=== PATIENT | female | born 1950 | race Caucasian/White ===

== ENCOUNTER 2017-10-22 18:16 | Inpatient (IN) | payer OTHER ==
[2017-10-22] MEDS: FUROSEMIDE 40 MG INJ IV (19:00)
[2017-10-22 19:32] LABS: ADD MAN DIFF? NO
[2017-10-22] MEDS: ASPIRIN 81 MG TAB PO (19:33)
[2017-10-22 19:34] LABS: WHITE BLOOD COUNT 6.2 10^3/ul (4.8-10.8)
[2017-10-22 19:34] LABS: BASOPHILS % 0.6 % (0.0-2.0); EOSINOPHILS # 0.1 10^3/ul (0.0-0.5); EOSINOPHILS % 2.1 % (0.0-7.0); HEMATOCRIT 48.5 % (37.0-47.0); HEMOGLOBIN 16.2 g/dl (12.0-16.0); LYMPHOCYTES # 0.9 10^3/ul (0.8-2.9); LYMPHOCYTES % 13.7 % (15.0-51.0); MEAN CORPUSCULAR HEMOGLOBIN 29.2 pg (29.0-33.0); MEAN CORPUSCULAR HGB CONC 33.4 g/dl (32.0-37.0); MEAN CORPUSCULAR VOLUME 87.4 fl (82.0-101.0); MEAN PLATELET VOLUME 8.9 fl (7.4-10.4); MONOCYTE # 0.6 10^3/ul (0.3-0.9); MONOCYTES % 8.9 % (0.0-11.0); NEUTROPHIL # 4.6 10^3/ul (1.6-7.5); NEUTROPHILS % 74.2 % (39.0-77.0); PLATELET COUNT 295 10^3/UL (140-415); RED BLOOD COUNT 5.55 10^6/ul (4.20-5.40); RED CELL DISTRIBUTION WIDTH 15.7 % (11.5-14.5)
[2017-10-22 19:47] LABS: AADO2 Arterial 152.4 mmHg (7.0-24.0); Allen Test ACCEPTAB; Arterial Base Excess 3.5 mmol/L (-3.0-3); Arterial Blood Gas Oxygen Sat 92.9 mmHG (95.0-98.0); Arterial COHb 0.9 % (0.0-3.0); Arterial Fraction of Oxyhgb 91.8 % (93.0-99.0); Arterial HCO3 25.9 mmol/L (22.0-26.0); Arterial MetHb 0.3 % (0.0-1.5); Arterial Total Hemglobin 16.4 g/dl (12.0-18.0); Arterial pCO2 33.4 mmhg (35-45); MODE NASAL CANNULA; Site Right Radial
[2017-10-22 19:55] LABS: LACTIC ACID 1.1 mmol/L (0.5-2.0)
[2017-10-22 19:55] LABS: INR 1.44; PARTIAL THROMBOPLASTIN TIME 31.2 Sec (25.0-35.0); PROTIME 17.8 Sec (11.9-14.9); PT RATIO 1.4
[2017-10-22 19:56] LABS: ANION GAP 13 (8-16); BLOOD UREA NITROGEN 20 mg/dl (7-20); CALCIUM 8.3 mg/dl (8.4-10.2); CARBON DIOXIDE 30 mmol/L (21-31); CHLORIDE 101 mmol/L (97-110); CREATININE 0.94 mg/dl (0.44-1.00); GLUCOSE 96 mg/dl (70-220); POTASSIUM 3.3 mmol/L (3.5-5.1); SODIUM 141 mmol/L (135-144)
[2017-10-22 20:08] LABS: TROPONIN-I 0.048 ng/ml (0.00-0.12)
[2017-10-22] MEDS ORDERED: ONDANSETRON 4 MG INJ IV (21:00)
[2017-10-22] MEDS ORDERED: ACETAMINOPHEN 325 MG TAB PO (21:00)
[2017-10-22] MEDS: POTASSIUM CHLORIDE (SR) 20 MEQ TAB PO (21:11)
[2017-10-22] MEDS: SOD CHLORIDE 0.9% 500 ML IV (21:17)
[2017-10-22 22:19] LABS: LACTIC ACID 1.4 mmol/L (0.5-2.0)
[2017-10-22 22:20] LABS: ALANINE AMINOTRANSFERASE 33 IU/L (13-69); ALBUMIN 2.7 g/dl (3.3-4.9); ALBUMIN/GLOBULIN RATIO 0.96; ALKALINE PHOSPHATASE 72 IU/L (42-121); ANION GAP 14 (8-16); ASPARTATE AMINO TRANSFERASE 39 IU/L (15-46); BILIRUBIN,INDIRECT 0.4 mg/dl (0-1.1); BILIRUBIN,TOTAL 0.4 mg/dl (0.2-1.3); BLOOD UREA NITROGEN 20 mg/dl (7-20); CARBON DIOXIDE 25 mmol/L (21-31); CHLORIDE 102 mmol/L (97-110); CREATININE 0.87 mg/dl (0.44-1.00); GLUCOSE 89 mg/dl (70-220); POTASSIUM 3.4 mmol/L (3.5-5.1); SODIUM 138 mmol/L (135-144); TOTAL PROTEIN 5.5 g/dl (6.1-8.1)
[2017-10-22] MEDS: IOHEXOL 100 ML (23:11)
[2017-10-22] MEDS: SOD CHLORIDE 0.9% 100 ML (23:11)
[2017-10-22] MEDS: IOHEXOL 350MG/ML 50 ML BTL (23:12)
[2017-10-23] MEDS ORDERED: ONDANSETRON 4 MG INJ IV
[2017-10-23] MEDS ORDERED: NACL 0.9% 3 ML SYG IV
[2017-10-23] MEDS: SOD CHLORIDE 0.9% 500 ML IV (01:30)
[2017-10-23 02:16] LABS: CREATINE KINASE 39 IU/L (23-200)
[2017-10-23 02:27] LABS: CK INDEX 2.4; CK-MB 0.95 ng/ml (0.0-2.4); TROPONIN-I 0.054 ng/ml (0.00-0.12)
[2017-10-23] MEDS ORDERED: RIOCIGUAT 2.5 MG PO (03:00)
[2017-10-23] MEDS ORDERED: NORepinephrine 8MG/250 ML (PMX 250 ML (03:20)
[2017-10-23 06:09] LABS: ADD MAN DIFF? NO
[2017-10-23 06:14] LABS: BASOPHIL # 0.1 10^3/ul (0.0-0.1); BASOPHILS % 0.7 % (0.0-2.0); EOSINOPHILS # 0.2 10^3/ul (0.0-0.5); EOSINOPHILS % 2.2 % (0.0-7.0); HEMATOCRIT 46.1 % (37.0-47.0); HEMOGLOBIN 15.7 g/dl (12.0-16.0); LYMPHOCYTES # 1.4 10^3/ul (0.8-2.9); LYMPHOCYTES % 18.8 % (15.0-51.0); MEAN CORPUSCULAR HEMOGLOBIN 29.6 pg (29.0-33.0); MEAN CORPUSCULAR HGB CONC 34.1 g/dl (32.0-37.0); MEAN CORPUSCULAR VOLUME 86.8 fl (82.0-101.0); MEAN PLATELET VOLUME 9.4 fl (7.4-10.4); MONOCYTE # 0.8 10^3/ul (0.3-0.9); MONOCYTES % 10.8 % (0.0-11.0); NEUTROPHIL # 4.9 10^3/ul (1.6-7.5); NEUTROPHILS % 66.8 % (39.0-77.0); PLATELET COUNT 286 10^3/UL (140-415); RED BLOOD COUNT 5.31 10^6/ul (4.20-5.40); RED CELL DISTRIBUTION WIDTH 15.9 % (11.5-14.5)
[2017-10-23 06:14] LABS: WHITE BLOOD COUNT 7.4 10^3/ul (4.8-10.8)
[2017-10-23 06:43] LABS: ALANINE AMINOTRANSFERASE 27 IU/L (13-69); ALBUMIN 2.3 g/dl (3.3-4.9); ALBUMIN/GLOBULIN RATIO 0.95; ALKALINE PHOSPHATASE 76 IU/L (42-121); ANION GAP 16 (8-16); ASPARTATE AMINO TRANSFERASE 39 IU/L (15-46); BILIRUBIN,INDIRECT 0.8 mg/dl (0-1.1); BILIRUBIN,TOTAL 0.8 mg/dl (0.2-1.3); BLOOD UREA NITROGEN 18 mg/dl (7-20); CALCIUM 7.4 mg/dl (8.4-10.2); CARBON DIOXIDE 22 mmol/L (21-31); CHLORIDE 108 mmol/L (97-110); CREATININE 0.78 mg/dl (0.44-1.00); GLUCOSE 99 mg/dl (70-220); SODIUM 142 mmol/L (135-144); TOTAL PROTEIN 4.7 g/dl (6.1-8.1)
[2017-10-23] MEDS: PIPER-TAZO 3.375 GM IV (PMX) 100 ML IVPB ×2 (07:00→21:58)
[2017-10-23] MEDS: FUROSEMIDE 40 MG INJ IV (07:00)
[2017-10-23 07:01] LABS: CREATINE KINASE 42 IU/L (23-200)
[2017-10-23 07:05] LABS: CHOL/HDL RATIO 4.1 RATIO; HDL CHOLESTEROL 26 mg/dl (35-98); LDL CHOLESTEROL,CALCULATED 56 mg/dl; TRIGLYCERIDES 132 mg/dl (0-149)
[2017-10-23 07:05] LABS: CHOLESTEROL 108 mg/dl (100-200)
[2017-10-23 07:14] LABS: CK INDEX 2.6; CK-MB 1.08 ng/ml (0.0-2.4); TROPONIN-I 0.053 ng/ml (0.00-0.12)
[2017-10-23 07:17] LABS: LACTIC ACID 2.1 mmol/L (0.5-2.0)
[2017-10-23] MEDS: NORepinephrine 8MG/250 ML (PMX 250 ML IV (07:17)
[2017-10-23] MEDS: LEVOTHYROXINE 25 MCG TAB PO (10:36)
[2017-10-23 11:15] LABS: LACTIC ACID 1.4 mmol/L (0.5-2.0)
[2017-10-23] MEDS: ADEMPAS 2.5 MG PO ×3 (12:28→21:57)
[2017-10-23 13:08] LABS: FREE T4 (FREE THYROXINE) 1.56 ng/dl (0.78-2.44)
[2017-10-23 13:09] LABS: T4 (THYROXINE) 9.4 ug/dl (5.5-11.0)
[2017-10-23] MEDS: DIGOXIN 0.125 MG TAB PO (13:28)
[2017-10-23 14:23] LABS: DIGOXIN 0.8 ng/ml (1.0-2.0)
[2017-10-23] MEDS ORDERED: CEFTRIAXONE 1 GM/50 ML (PMX) 50 ML IVPB (17:00)
[2017-10-23] MEDS: RIVAROXABAN 20 MG TABLET PO (19:08)
[2017-10-23] MEDS: AZITHROMYCIN 250 MG TAB PO (19:12)
[2017-10-24] MEDS: PIPER-TAZO 3.375 GM IV (PMX) 100 ML IVPB ×3 (05:26→21:59)
[2017-10-24 05:39] LABS: ADD MAN DIFF? NO
[2017-10-24 05:47] LABS: BASOPHIL # 0.1 10^3/ul (0.0-0.1); BASOPHILS % 0.6 % (0.0-2.0); EOSINOPHILS # 0.2 10^3/ul (0.0-0.5); EOSINOPHILS % 2.1 % (0.0-7.0); HEMATOCRIT 45.5 % (37.0-47.0); HEMOGLOBIN 15.6 g/dl (12.0-16.0); LYMPHOCYTES # 1.3 10^3/ul (0.8-2.9); LYMPHOCYTES % 14.9 % (15.0-51.0); MEAN CORPUSCULAR HEMOGLOBIN 29.5 pg (29.0-33.0); MEAN CORPUSCULAR HGB CONC 34.3 g/dl (32.0-37.0); MEAN CORPUSCULAR VOLUME 86.2 fl (82.0-101.0); MEAN PLATELET VOLUME 8.8 fl (7.4-10.4); MONOCYTE # 0.7 10^3/ul (0.3-0.9); MONOCYTES % 8.6 % (0.0-11.0); NEUTROPHIL # 6.3 10^3/ul (1.6-7.5); NEUTROPHILS % 73.2 % (39.0-77.0); PLATELET COUNT 283 10^3/UL (140-415); RED BLOOD COUNT 5.28 10^6/ul (4.20-5.40); RED CELL DISTRIBUTION WIDTH 16.5 % (11.5-14.5)
[2017-10-24 05:47] LABS: WHITE BLOOD COUNT 8.6 10^3/ul (4.8-10.8)
[2017-10-24 06:15] LABS: ANION GAP 15 (8-16); BLOOD UREA NITROGEN 15 mg/dl (7-20); CALCIUM 7.8 mg/dl (8.4-10.2); CARBON DIOXIDE 25 mmol/L (21-31); CHLORIDE 108 mmol/L (97-110); CREATININE 0.76 mg/dl (0.44-1.00); GLUCOSE 117 mg/dl (70-220); MAGNESIUM 2.1 mg/dl (1.7-2.5); PHOSPHORUS 3.6 mg/dl (2.5-4.9); SODIUM 145 mmol/L (135-144)
[2017-10-24 06:18] LABS: POTASSIUM 2.8 mmol/L (3.5-5.1)
[2017-10-24] MEDS: LEVOTHYROXINE 25 MCG TAB PO (07:59)
[2017-10-24] MEDS: POTASSIUM CHLORIDE 20 MEQ POWDER FOR ORAL SOLN PO (08:00)
[2017-10-24] MEDS: AZITHROMYCIN 250 MG TAB PO (08:29)
[2017-10-24] MEDS: ADEMPAS 2.5 MG PO ×3 (08:29→21:42)
[2017-10-24] MEDS: PHENTOLAMINE 5 MG INJ SC (12:30)
[2017-10-24] MEDS: LIDOCAINE 1% (MPF) 5 ML VIAL SC (17:05)
[2017-10-24] MEDS: SOD CHLORIDE 0.9% 100 ML (17:20)
[2017-10-24] MEDS: RIVAROXABAN 20 MG TABLET PO (18:14)
[2017-10-24] MEDS ORDERED: POTASSIUM CHLORIDE 50 ML IVPB (19:00)
[2017-10-24] MEDS: SOD CHLORIDE 0.9% 250 ML IV (19:30)
[2017-10-24] MEDS: ACETAMINOPHEN 325 MG TAB PO (21:42)
[2017-10-25] MEDS: PIPER-TAZO 3.375 GM IV (PMX) 100 ML IVPB ×3 (05:01→22:30)
[2017-10-25 05:15] LABS: ADD MAN DIFF? NO
[2017-10-25 05:22] LABS: WHITE BLOOD COUNT 6.2 10^3/ul (4.8-10.8)
[2017-10-25 05:22] LABS: BASOPHILS % 0.6 % (0.0-2.0); EOSINOPHILS # 0.2 10^3/ul (0.0-0.5); EOSINOPHILS % 3.6 % (0.0-7.0); HEMATOCRIT 47.6 % (37.0-47.0); LYMPHOCYTES # 1.2 10^3/ul (0.8-2.9); MEAN CORPUSCULAR HEMOGLOBIN 29.1 pg (29.0-33.0); MEAN CORPUSCULAR HGB CONC 33.6 g/dl (32.0-37.0); MEAN CORPUSCULAR VOLUME 86.7 fl (82.0-101.0); MEAN PLATELET VOLUME 8.9 fl (7.4-10.4); MONOCYTE # 0.6 10^3/ul (0.3-0.9); MONOCYTES % 9.7 % (0.0-11.0); NEUTROPHIL # 4.1 10^3/ul (1.6-7.5); NEUTROPHILS % 65.8 % (39.0-77.0); PLATELET COUNT 267 10^3/UL (140-415); RED BLOOD COUNT 5.49 10^6/ul (4.20-5.40); RED CELL DISTRIBUTION WIDTH 15.9 % (11.5-14.5)
[2017-10-25 05:36] LABS: ANION GAP 12 (8-16); BLOOD UREA NITROGEN 13 mg/dl (7-20); CALCIUM 7.5 mg/dl (8.4-10.2); CARBON DIOXIDE 21 mmol/L (21-31); CHLORIDE 110 mmol/L (97-110); CREATININE 0.72 mg/dl (0.44-1.00); GLUCOSE 111 mg/dl (70-220); MAGNESIUM 2.1 mg/dl (1.7-2.5); PHOSPHORUS 2.8 mg/dl (2.5-4.9); POTASSIUM 3.7 mmol/L (3.5-5.1); SODIUM 139 mmol/L (135-144)
[2017-10-25] MEDS: LEVOTHYROXINE 25 MCG TAB PO (06:50)
[2017-10-25] MEDS: ACETAMINOPHEN 325 MG TAB PO (07:25)
[2017-10-25 08:41] LABS: AADO2 Arterial 322.3 mmHg (7.0-24.0); Allen Test ACCEPTAB; Arterial Blood Gas Oxygen Sat 94.1 mmHG (95.0-98.0); Arterial COHb 0.8 % (0.0-3.0); Arterial Fraction of Oxyhgb 93.1 % (93.0-99.0); Arterial HCO3 21.9 mmol/L (22.0-26.0); Arterial MetHb 0.3 % (0.0-1.5); Arterial Total Hemglobin 16.1 g/dl (12.0-18.0); Arterial pCO2 32.3 mmhg (35-45); MODE HFNC; Site Right Radial
[2017-10-25] MEDS: ADEMPAS 2.5 MG PO ×2 (08:50→13:18)
[2017-10-25] MEDS: POTASSIUM CHLORIDE 20 MEQ POWDER FOR ORAL SOLN PO (08:51)
[2017-10-25] MEDS: RIVAROXABAN 20 MG TABLET PO (17:57)
[2017-10-26] MEDS: ADEMPAS 1.5 MG PO ×4 (00:08→20:17)
[2017-10-26 05:08] LABS: ADD MAN DIFF? NO
[2017-10-26 05:09] LABS: ABNORMAL IP MESSAGE 1; BASOPHIL # 0.1 10^3/ul (0.0-0.1); BASOPHILS % 1.2 % (0.0-2.0); EOSINOPHILS # 0.8 10^3/ul (0.0-0.5); EOSINOPHILS % 11.2 % (0.0-7.0); HEMATOCRIT 43.9 % (37.0-47.0); LYMPHOCYTES # 1.1 10^3/ul (0.8-2.9); LYMPHOCYTES % 16.5 % (15.0-51.0); MEAN CORPUSCULAR HEMOGLOBIN 29.8 pg (29.0-33.0); MEAN CORPUSCULAR HGB CONC 34.2 g/dl (32.0-37.0); MEAN CORPUSCULAR VOLUME 87.1 fl (82.0-101.0); MEAN PLATELET VOLUME 9.1 fl (7.4-10.4); MONOCYTE # 0.5 10^3/ul (0.3-0.9); MONOCYTES % 7.5 % (0.0-11.0); NEUTROPHIL # 4.3 10^3/ul (1.6-7.5); NEUTROPHILS % 63.2 % (39.0-77.0); PLATELET COUNT 263 10^3/UL (140-415); RED BLOOD COUNT 5.04 10^6/ul (4.20-5.40); RED CELL DISTRIBUTION WIDTH 16.2 % (11.5-14.5)
[2017-10-26 05:09] LABS: WHITE BLOOD COUNT 6.8 10^3/ul (4.8-10.8)
[2017-10-26 05:25] LABS: POSITIVE DIFF @See below
[2017-10-26 05:43] LABS: ANION GAP 9 (8-16); BLOOD UREA NITROGEN 11 mg/dl (7-20); CALCIUM 7.5 mg/dl (8.4-10.2); CARBON DIOXIDE 23 mmol/L (21-31); CHLORIDE 107 mmol/L (97-110); CREATININE 0.68 mg/dl (0.44-1.00); GLUCOSE 142 mg/dl (70-220); MAGNESIUM 2.1 mg/dl (1.7-2.5); PHOSPHORUS 3.1 mg/dl (2.5-4.9); POTASSIUM 3.8 mmol/L (3.5-5.1); SODIUM 135 mmol/L (135-144)
[2017-10-26] MEDS: LEVOTHYROXINE 25 MCG TAB PO (06:21)
[2017-10-26] MEDS: PIPER-TAZO 3.375 GM IV (PMX) 100 ML IVPB ×3 (06:23→21:32)
[2017-10-26] MEDS: POTASSIUM CHLORIDE 20 MEQ POWDER FOR ORAL SOLN PO (06:56)
[2017-10-26 09:11] LABS: AADO2 Arterial 314.9 mmHg (7.0-24.0); Allen Test ACCEPTAB; Arterial Base Excess -2.3 mmol/L (-3.0-3); Arterial Blood Gas Oxygen Sat 95.6 mmHG (95.0-98.0); Arterial COHb 0.4 % (0.0-3.0); Arterial Fraction of Oxyhgb 94.9 % (93.0-99.0); Arterial HCO3 20.3 mmol/L (22.0-26.0); Arterial MetHb 0.3 % (0.0-1.5); Arterial Total Hemglobin 16.9 g/dl (12.0-18.0); Arterial pCO2 29.9 mmhg (35-45); MODE HFNC; Site LB
[2017-10-26] MEDS: FUROSEMIDE 40 MG TAB PO ×2 (12:44→17:41)
[2017-10-26] MEDS: RIVAROXABAN 20 MG TABLET PO (17:43)
[2017-10-26] MEDS: ACETAMINOPHEN 325 MG TAB PO (20:17)
[2017-10-27 05:17] LABS: ADD MAN DIFF? NO
[2017-10-27 05:24] LABS: BASOPHIL # 0.1 10^3/ul (0.0-0.1); BASOPHILS % 1.3 % (0.0-2.0); EOSINOPHILS # 0.3 10^3/ul (0.0-0.5); EOSINOPHILS % 5.3 % (0.0-7.0); HEMATOCRIT 42.8 % (37.0-47.0); HEMOGLOBIN 14.5 g/dl (12.0-16.0); LYMPHOCYTES % 17.8 % (15.0-51.0); MEAN CORPUSCULAR HEMOGLOBIN 29.4 pg (29.0-33.0); MEAN CORPUSCULAR HGB CONC 33.9 g/dl (32.0-37.0); MEAN CORPUSCULAR VOLUME 86.8 fl (82.0-101.0); MEAN PLATELET VOLUME 9.1 fl (7.4-10.4); MONOCYTE # 0.5 10^3/ul (0.3-0.9); MONOCYTES % 9.3 % (0.0-11.0); NEUTROPHIL # 3.6 10^3/ul (1.6-7.5); NEUTROPHILS % 65.8 % (39.0-77.0); PLATELET COUNT 243 10^3/UL (140-415); RED BLOOD COUNT 4.93 10^6/ul (4.20-5.40); RED CELL DISTRIBUTION WIDTH 16.3 % (11.5-14.5)
[2017-10-27 05:24] LABS: WHITE BLOOD COUNT 5.5 10^3/ul (4.8-10.8)
[2017-10-27] MEDS: FUROSEMIDE 40 MG TAB PO (05:29)
[2017-10-27] MEDS: PIPER-TAZO 3.375 GM IV (PMX) 100 ML IVPB ×3 (05:30→21:43)
[2017-10-27 05:42] LABS: ANION GAP 12 (8-16); BLOOD UREA NITROGEN 12 mg/dl (7-20); CALCIUM 7.1 mg/dl (8.4-10.2); CARBON DIOXIDE 25 mmol/L (21-31); CHLORIDE 105 mmol/L (97-110); CREATININE 0.76 mg/dl (0.44-1.00); GLUCOSE 177 mg/dl (70-220); MAGNESIUM 1.9 mg/dl (1.7-2.5); POTASSIUM 3.4 mmol/L (3.5-5.1); SODIUM 139 mmol/L (135-144)
[2017-10-27] MEDS: LEVOTHYROXINE 25 MCG TAB PO (06:04)
[2017-10-27] MEDS: POTASSIUM CHLORIDE 20 MEQ POWDER FOR ORAL SOLN PO ×2 (06:05→20:38)
[2017-10-27] MEDS: ADEMPAS 1.5 MG PO ×3 (09:35→21:43)
[2017-10-27] MEDS: RIVAROXABAN 20 MG TABLET PO (17:32)
[2017-10-27 20:19] LABS: POTASSIUM 3.2 mmol/L (3.5-5.1)
[2017-10-27 23:37] LABS: POTASSIUM 4.3 mmol/L (3.5-5.1)
[2017-10-28 04:46] LABS: ADD MAN DIFF? NO
[2017-10-28 04:49] LABS: WHITE BLOOD COUNT 5.7 10^3/ul (4.8-10.8)
[2017-10-28 04:49] LABS: BASOPHIL # 0.1 10^3/ul (0.0-0.1); BASOPHILS % 0.9 % (0.0-2.0); EOSINOPHILS # 0.2 10^3/ul (0.0-0.5); EOSINOPHILS % 4.2 % (0.0-7.0); HEMATOCRIT 44.6 % (37.0-47.0); LYMPHOCYTES % 18.1 % (15.0-51.0); MEAN CORPUSCULAR HEMOGLOBIN 29.6 pg (29.0-33.0); MEAN CORPUSCULAR HGB CONC 33.6 g/dl (32.0-37.0); MEAN PLATELET VOLUME 9.2 fl (7.4-10.4); MONOCYTE # 0.6 10^3/ul (0.3-0.9); MONOCYTES % 9.6 % (0.0-11.0); NEUTROPHIL # 3.8 10^3/ul (1.6-7.5); NEUTROPHILS % 66.5 % (39.0-77.0); PLATELET COUNT 243 10^3/UL (140-415); RED BLOOD COUNT 5.07 10^6/ul (4.20-5.40); RED CELL DISTRIBUTION WIDTH 16.1 % (11.5-14.5)
[2017-10-28 05:34] LABS: ANION GAP 12 (8-16); BLOOD UREA NITROGEN 11 mg/dl (7-20); CALCIUM 6.9 mg/dl (8.4-10.2); CARBON DIOXIDE 23 mmol/L (21-31); CHLORIDE 107 mmol/L (97-110); CREATININE 0.78 mg/dl (0.44-1.00); GLUCOSE 151 mg/dl (70-220); POTASSIUM 3.8 mmol/L (3.5-5.1); SODIUM 138 mmol/L (135-144)
[2017-10-28] MEDS: PIPER-TAZO 3.375 GM IV (PMX) 100 ML IVPB ×3 (05:54→21:21)
[2017-10-28] MEDS: ADEMPAS 1.5 MG PO ×3 (06:01→21:22)
[2017-10-28] MEDS: POTASSIUM CHLORIDE 20 MEQ POWDER FOR ORAL SOLN PO (06:01)
[2017-10-28] MEDS: LEVOTHYROXINE 25 MCG TAB PO (06:35)
[2017-10-28 12:16] LABS: POTASSIUM 4.1 mmol/L (3.5-5.1)
[2017-10-28] MEDS: RIVAROXABAN 20 MG TABLET PO (17:44)
[2017-10-28] MEDS: FUROSEMIDE 20 MG INJ IV (18:27)
== END 2017-10-29 | disposition short-term general hospital (02) | DRG 314 ==
LOC: MS4 20:39 → E/R 18:16 → ICU 10-23 03:15
PROC: 02HV33Z Insertion of Infusion Device into Superior Vena Cava, Percutaneous Approach (ICD-10-PCS; principal; 2017-10-24)
PROC: B548ZZA Ultrasonography of Superior Vena Cava, Guidance (ICD-10-PCS; 2017-10-24)
DX: I27.24 Chronic thromboembolic pulmonary hypertension (principal); I26.99 Other pulmonary embolism without acute cor pulmonale; J96.21 Acute and chronic respiratory failure with hypoxia; I42.9 Cardiomyopathy, unspecified; R57.9 Shock, unspecified; I11.0 Hypertensive heart disease with heart failure; Z79.01 Long term (current) use of anticoagulants; I07.1 Rheumatic tricuspid insufficiency; I48.91 Unspecified atrial fibrillation; Z99.81 Dependence on supplemental oxygen; I50.9 Heart failure, unspecified; E03.9 Hypothyroidism, unspecified
CPT/HCPCS: 36415; 36569; 36600; 71045; 71275; 75635; 76937; 80048; 80053; 80061; 80162; 82533; 82550; 82553; 82803; 83036; 83605; 83735; 84100; 84132; 84436; 84439; 84443; 84484; 85025; 85610; 85730; 87040; 87081; 93005; 93306; 93971; 99291-25